=== PATIENT | male | born 2000 | race African-American/Black ===

== ENCOUNTER 2022-11-14 17:04 | Emergency (ER) | payer BC ==
[~2022-11-14] VITALS: Ht 188 cm; Wt 64.0 kg
[2022-11-14 17:16] VITALS: BP 110/72
[2022-11-14] MEDS ORDERED: HYDROCODONE/ACETAMINOPHEN 5/325MG TABLET PO ONE (18:30)
[2022-11-14] MEDS ORDERED: IBUP-2029 MT (19:53)
[2022-11-14] MEDS ORDERED: CEPH500C2 MT (19:53)
== END 2022-11-14 20:19 | disposition home or self-care (01) ==
LOC: ER 17:04
DX: S61.011A Laceration without foreign body of right thumb without damage to nail, initial encounter (principal); S60.221A Contusion of right hand, initial encounter; W22.8XXA Striking against or struck by other objects, initial encounter; Y93.89 Activity, other specified; Y92.018 Other place in single-family (private) house as the place of occurrence of the external cause
CPT/HCPCS: 12001; 73130; 99283